=== PATIENT | female | born 1995 | race Caucasian/White ===

== ENCOUNTER 2017-04-13 00:17 | Emergency (ER) | payer MEDICAID ==
[~2017-04-13] VITALS: Ht 152.4 cm; Wt 74.1 kg
[~2017-04-13 00:17] MED LIST: MACROBID 100 M100 MG PO
[2017-04-13 01:22] LABS: EOS # 0.1 (0.04-0.40); EOS % 0.7 % (1.0-5.0); HEMATOCRIT 40.6 % (37.0-47.0); HEMOGLOBIN 13.9 g/dL (12.5-16.0); LYMPH# 2.4 (1.50-4.00); MEAN CELL VOLUME 84 fl (78-100); MEAN CORPUSCULAR HEMOGLOBIN 29 pg (27-31); MEAN CORPUSCULAR HGB CONC 34 g/dL (33-37); MEAN PLATELET VOLUME 9.2 fl (7.4-10.4); MONO # 0.7 (0.20-0.80); NEU # 7.2 (1.40-6.50); PLATELET COUNT 308 K/mm3 (130-400); RED BLOOD COUNT 4.81 M/mm3 (4.10-5.30); RED CELL DISTRIBUTION WIDTH 12.7 % (11.5-14.5); WHITE BLOOD COUNT 10.4 K/mm3 (4.8-10.8)
[2017-04-13 01:29] LABS: ALBUMIN 4.4 g/dL (3.5-5.0); BUN/CREATININE RATIO 22.2 (6.0-26.0); CALCIUM 9.3 mg/dL (8.4-10.2); TOTAL BILIRUBIN 0.5 mg/dL (0.2-1.3); TOTAL PROTEIN 8.3 g/dL (6.3-8.2)
[2017-04-13] MEDS ORDERED: PROPRANOLOL HCL20 M2 PO (01:52)
[2017-04-13 01:57] VITALS: BP 120/86
== END 2017-04-13 01:57 | disposition home or self-care (01) ==
LOC: ED 00:17
PROVIDERS: Nurse Practitioner Primary Care
DX: F41.1 Generalized anxiety disorder (principal); Z91.013 Allergy to seafood

== ENCOUNTER 2017-06-06 19:54 | Emergency (ER) | payer MEDICAID ==
[~2017-06-06] VITALS: Ht 152.4 cm; Wt 74.1 kg
[~2017-06-06 19:54] MED LIST changes: +PROPRANOLOL HCL20 M2 PO
[2017-06-06] MEDS ORDERED: FLONASE ALLERG9.9 ML NS (20:05)
[2017-06-06] MEDS ORDERED: AMOXICILLIN875 MG PO (20:37)
[2017-06-06 21:05] VITALS: BP 127/87
== END 2017-06-06 21:00 | disposition home or self-care (01) ==
LOC: ED 19:54
DX: J01.40 Acute pansinusitis, unspecified (principal); I10 Essential (primary) hypertension

== ENCOUNTER 2018-05-31 20:45 | Emergency (ER) | payer MEDICAID ==
[~2018-05-31] VITALS: Ht 152.4 cm; Wt 68.2 kg
[~2018-05-31 20:45] MED LIST changes: +AMOXICILLIN875 MG PO; +FLONASE ALLERG9.9 ML NS
[2018-05-31 22:30] VITALS: BP 131/91
[2018-05-31] MEDS ORDERED: PREDNISONE20 MG PO (22:35)
[2018-05-31] MEDS ORDERED: CIPRO500 M1 PO (22:35)
[2018-05-31] MEDS ORDERED: SYNTHROID0.05 MG PO (22:37)
[2018-06-01] MEDS ORDERED: BACTRIM DS TAB1 EACH PO (00:20)
== END 2018-06-01 00:26 | disposition home or self-care (01) ==
LOC: ED 20:45
DX: R20.0 Anesthesia of skin (principal); T36.8X5A Adverse effect of other systemic antibiotics, initial encounter; Z79.52 Long term (current) use of systemic steroids

== ENCOUNTER 2018-11-15 17:11 | Emergency (ER) | payer MEDICAID ==
[~2018-11-15] VITALS: Ht 160 cm; Wt 73.6 kg
[~2018-11-15 17:11] MED LIST changes: +BACTRIM DS TAB1 EACH PO; +CIPRO500 M1 PO; +PREDNISONE20 MG PO; +SYNTHROID0.05 MG PO
[2018-11-15] MEDS ORDERED: FLONASE ALLERG9.9 ML NS (17:30)
[2018-11-15] MEDS ORDERED: CLARITIN 1010 MG/TAB PO (18:04)
[2018-11-15] MEDS ORDERED: FLUTICASON0.05 MG/AC NS (18:04)
[2018-11-15 18:17] VITALS: BP 125/72
== END 2018-11-15 18:16 | disposition home or self-care (01) ==
LOC: ED 17:11
DX: J30.9 Allergic rhinitis, unspecified (principal); K21.9 Gastro-esophageal reflux disease without esophagitis; E03.9 Hypothyroidism, unspecified; Z88.1 Allergy status to other antibiotic agents; Z79.51 Long term (current) use of inhaled steroids

== ENCOUNTER 2018-11-24 22:18 | Emergency (ER) | payer SELFPAY ==
[~2018-11-24 22:18] MED LIST changes: +CLARITIN 1010 MG/TAB PO; +FLUTICASON0.05 MG/AC NS
[2018-11-25] MEDS ORDERED: CEFDINIR300 MG PO (01:28)
[2018-11-25 01:38] VITALS: BP 138/89
== END 2018-11-25 01:38 | disposition home or self-care (01) ==
LOC: ED 22:18
DX: J01.20 Acute ethmoidal sinusitis, unspecified (principal); E07.9 Disorder of thyroid, unspecified; Z98.890 Other specified postprocedural states

== ENCOUNTER → 2019-04-08 | Outpatient (CLI) | payer SELFPAY ==
[~2019-04-08] MED LIST changes: +CEFDINIR300 MG PO
== END ==
LOC: LAB 16:36
DX: M26.629 Arthralgia of temporomandibular joint, unspecified side (principal); N64.52 Nipple discharge

== ENCOUNTER 2019-05-14 13:46 | Emergency (ER) | payer SELFPAY ==
[~2019-05-14] VITALS: Ht 152.4 cm; Wt 68.2 kg
[2019-05-14] MEDS ORDERED: BACTRIM DS TAB1 EACH PO (14:10)
[2019-05-14 15:00] VITALS: BP 119/84
== END 2019-05-14 15:10 | disposition home or self-care (01) ==
LOC: ED 13:46
DX: L50.0 Allergic urticaria (principal); T36.8X5A Adverse effect of other systemic antibiotics, initial encounter

== ENCOUNTER 2019-05-18 05:05 | Emergency (ER) | payer SELFPAY ==
[2019-05-18] MEDS ORDERED: CEPHALEXIN500 M2 PO (06:01)
[2019-05-18] MEDS ORDERED: ATHLETE'S FOOT1% TP (06:01)
[2019-05-18 06:08] VITALS: BP 121/88
== END 2019-05-18 06:08 | disposition home or self-care (01) ==
LOC: ED 05:05
DX: R21 Rash and other nonspecific skin eruption (principal); T36.8X5A Adverse effect of other systemic antibiotics, initial encounter; B37.2 Candidiasis of skin and nail; N61.0 Mastitis without abscess; Z88.1 Allergy status to other antibiotic agents

== ENCOUNTER 2019-07-03 22:12 | Emergency (ER) | payer SELFPAY ==
[~2019-07-03] VITALS: Ht 167.6 cm; Wt 61.4 kg
[~2019-07-03 22:12] MED LIST changes: +ATHLETE'S FOOT1% TP; +CEPHALEXIN500 M2 PO
[2019-07-03] MEDS ORDERED: ZYRTEC10 M3 PO (22:22)
[2019-07-03 23:04] LABS: PH-URINE 5.5 (5.0 - 8.0); URINE APPEARANCE CLOUDY; URINE BILIRUBIN NEGATIVE (NEGATIVE); URINE BLOOD 50 ery/uL (NEGATIVE); URINE COLOR YELLOW; URINE GLUCOSE NEGATIVE (NEGATIVE); URINE KETONE NEGATIVE (NEGATIVE); URINE LEUKOCYTE ESTERASE 2+ (NEGATIVE); URINE NITRATE NEGATIVE (NEGATIVE); URINE PROTEIN(semi-quant) TRACE mg/dL (NEGATIVE); URINE UROBILINOGEN NORMAL (NORMAL)
[2019-07-03 23:05] LABS: URINE WBC >50 /hpf (0-3)
[2019-07-03] MEDS ORDERED: MACROBID 100 M100 MG PO (23:08)
[2019-07-03 23:14] VITALS: BP 135/88
== END 2019-07-03 23:15 | disposition home or self-care (01) ==
LOC: ED 22:12
PROVIDERS: Nurse Practitioner
DX: N39.0 Urinary tract infection, site not specified (principal)

== ENCOUNTER → 2020-02-14 | Outpatient (CLI) | payer MEDICAID ==
[~2020-02-14] MED LIST changes: +ZYRTEC10 M3 PO
== END ==
LOC: LAB 07:47
DX: R68.83 Chills (without fever) (principal); R06.02 Shortness of breath; R09.81 Nasal congestion; Z20.828 Contact with and (suspected) exposure to other viral communicable diseases

== ENCOUNTER 2021-01-06 02:18 | Emergency (ER) | payer MEDICAID ==
[~2021-01-06] VITALS: Ht 152.4 cm; Wt 66.0 kg
[2021-01-06] MEDS ORDERED: AMOXICILLIN AND1 TA2 PO (02:35)
[2021-01-06] MEDS ORDERED: VITAMIN D21250 MCG PO (02:36)
[2021-01-06] MEDS ORDERED: LEVOTHYROXIN0.075 MG PO (02:36)
[2021-01-06] MEDS ORDERED: PRILOSEC 20MG20 MG PO (02:37)
[2021-01-06 03:59] LABS: BASO # 0.01 (0.02-0.10); EOS # 0.03 (0.04-0.40); EOS % 0.5 % (1.0-5.0); HEMATOCRIT 40.7 % (37.0-47.0); HEMOGLOBIN 13.8 g/dL (12.5-16.0); LYMPH# 1.59 (1.50-4.00); MEAN CELL VOLUME 82 fl (78-100); MEAN CORPUSCULAR HEMOGLOBIN 28 pg (27-31); MEAN CORPUSCULAR HGB CONC 34 g/dL (33-37); MEAN PLATELET VOLUME 9.6 fl (7.4-10.4); MONO # 0.39 (0.20-0.80); NEU # 4.55 (1.40-6.50); PLATELET COUNT 242 K/mm3 (130-400); RED BLOOD COUNT 4.97 M/mm3 (4.10-5.30); RED CELL DISTRIBUTION WIDTH 13.6 % (11.5-14.5); WHITE BLOOD COUNT 6.6 K/mm3 (4.8-10.8)
[2021-01-06 04:03] LABS: ALBUMIN 4.3 g/dL (3.5-5.0); POTASSIUM 3.6 mmol/L (3.5-5.1)
[2021-01-06 04:04] LABS: CALCIUM 9.8 mg/dL (8.3-10.5)
[2021-01-06 04:06] LABS: TOTAL PROTEIN 7.9 g/dL (6.4-8.3)
[2021-01-06 04:07] LABS: TOTAL BILIRUBIN 0.5 mg/dL (0.2-1.2)
[2021-01-06 04:13] LABS: URINE APPEARANCE CLEAR; URINE COLOR YELLOW
[2021-01-06 04:14] LABS: URINE BILIRUBIN NEGATIVE (NEGATIVE); URINE BLOOD NEGATIVE (NEGATIVE); URINE GLUCOSE NEGATIVE (NEGATIVE); URINE KETONE 1+ (NEGATIVE); URINE LEUKOCYTE ESTERASE NEGATIVE (NEGATIVE); URINE NITRATE NEGATIVE (NEGATIVE); URINE PROTEIN(semi-quant) NEGATIVE (NEGATIVE); URINE UROBILINOGEN NORMAL (NORMAL); URINE WBC 0-1 /hpf (0-3)
[2021-01-06 04:46] VITALS: BP 130/75
== END 2021-01-06 04:46 | disposition home or self-care (01) ==
LOC: ED 02:18
PROVIDERS: Family Medicine
DX: R10.9 Unspecified abdominal pain (principal); K21.9 Gastro-esophageal reflux disease without esophagitis; E03.9 Hypothyroidism, unspecified; Z79.899 Other long term (current) drug therapy; Z79.890 Hormone replacement therapy

== ENCOUNTER 2021-01-15 21:11 | Emergency (ER) | payer MEDICAID ==
[~2021-01-15] VITALS: Ht 152.4 cm; Wt 66.7 kg
[~2021-01-15 21:11] MED LIST changes: +AMOXICILLIN AND1 TA2 PO; +LEVOTHYROXIN0.075 MG PO; +PRILOSEC 20MG20 MG PO; +VITAMIN D21250 MCG PO
[2021-01-15] MEDS ORDERED: MACROBID 100 M100 MG PO (21:30)
[2021-01-15] MEDS ORDERED: MORGIDOX 2X100100 MG PO (21:54)
[2021-01-15] MEDS ORDERED: PREDNISONE20 M1 PO (21:54)
[2021-01-15 22:30] VITALS: BP 123/81
== END 2021-01-15 22:31 | disposition home or self-care (01) ==
LOC: ED 21:11
DX: J32.9 Chronic sinusitis, unspecified (principal)

== ENCOUNTER 2021-01-21 19:49 | Emergency (ER) | payer MEDICAID ==
[~2021-01-21] VITALS: Ht 152.4 cm; Wt 66.7 kg
[~2021-01-21 19:49] MED LIST changes: +MORGIDOX 2X100100 MG PO; +PREDNISONE20 M1 PO
[2021-01-21 21:24] LABS: BASO # 0.01 K/mm3 (0.02-0.10); EOS # 0.04 K/mm3 (0.04-0.40); EOS % 0.7 % (1.0-5.0); HEMATOCRIT 39.4 % (37.0-47.0); HEMOGLOBIN 13.3 g/dL (12.5-16.0); LYMPH# 1.22 K/mm3 (1.50-4.00); MEAN CELL VOLUME 82 fl (78-100); MEAN CORPUSCULAR HEMOGLOBIN 28 pg (27-31); MEAN CORPUSCULAR HGB CONC 34 g/dL (33-37); MEAN PLATELET VOLUME 9.3 fl (7.4-10.4); MONO # 0.33 K/mm3 (0.20-0.80); NEU # 4.54 K/mm3 (1.40-6.50); PLATELET COUNT 252 K/mm3 (130-400); RED BLOOD COUNT 4.83 M/mm3 (4.10-5.30); RED CELL DISTRIBUTION WIDTH 13.7 % (11.5-14.5); WHITE BLOOD COUNT 6.1 K/mm3 (4.8-10.8)
[2021-01-21 21:35] LABS: POTASSIUM 3.3 mmol/L (3.5-5.1); SODIUM 142 mmol/L (136-145)
[2021-01-21 21:36] LABS: CALCIUM 9.5 mg/dL (8.3-10.5)
[2021-01-21 21:37] LABS: GLUCOSE 90 mg/dL (65-105)
[2021-01-21 21:39] LABS: CARBON DIOXIDE 21 mmol/L (22-29); TOTAL BILIRUBIN 0.6 mg/dL (0.2-1.2)
[2021-01-21 21:43] LABS: AST-SGOT 20 U/L (5-34)
[2021-01-21 21:44] LABS: ALT/SGPT 23 U/L (0-55)
[2021-01-21 21:51] LABS: TROPONIN-I < 0.03 ng/mL (<0.030)
[2021-01-21 22:02] LABS: PH-URINE 5.5 (5.0 - 8.0); URINE APPEARANCE HAZY; URINE COLOR YELLOW; URINE GLUCOSE NEGATIVE (NEGATIVE); URINE KETONE 2+ (NEGATIVE); URINE PROTEIN(semi-quant) TRACE mg/dL (NEGATIVE)
[2021-01-21 22:03] LABS: URINE BILIRUBIN NEGATIVE (NEGATIVE); URINE BLOOD 250 ery/uL (NEGATIVE); URINE LEUKOCYTE ESTERASE TRACE (NEGATIVE); URINE NITRATE NEGATIVE (NEGATIVE); URINE UROBILINOGEN NORMAL (NORMAL)
[2021-01-21 23:18] VITALS: BP 128/74
== END 2021-01-21 23:18 | disposition home or self-care (01) ==
LOC: ED 19:49
PROVIDERS: Nurse Practitioner Family
DX: F41.9 Anxiety disorder, unspecified (principal); E87.6 Hypokalemia; E03.9 Hypothyroidism, unspecified; Z79.890 Hormone replacement therapy

== ENCOUNTER 2021-02-10 16:48 | Emergency (ER) | payer MEDICAID ==
[2021-02-10] MEDS ORDERED: CYCLOBENZAPRINE10 M1 PO (17:28)
[2021-02-10] MEDS ORDERED: WELLBUTRIN XL150 M2 PO (17:29)
[2021-02-10 18:51] LABS: D-DIMER 0.49 mg/L FEU (0.15-0.50)
[2021-02-10 19:22] VITALS: BP 116/76
== END 2021-02-10 19:22 | disposition home or self-care (01) ==
LOC: ED 16:48
PROVIDERS: Nurse Practitioner
DX: M79.604 Pain in right leg (principal); F41.9 Anxiety disorder, unspecified; E03.9 Hypothyroidism, unspecified; Z79.890 Hormone replacement therapy; Z79.899 Other long term (current) drug therapy

== ENCOUNTER 2021-02-18 16:49 | Emergency (ER) | payer MEDICAID ==
[~2021-02-18] VITALS: Ht 152.4 cm; Wt 60.8 kg
[~2021-02-18 16:49] MED LIST changes: +CYCLOBENZAPRINE10 M1 PO; +WELLBUTRIN XL150 M2 PO
[2021-02-18 16:58] VITALS: BP 111/79
[2021-02-18] MEDS ORDERED: PANTOPRAZOLE SO40 MG PO (17:08)
[2021-02-18] MEDS ORDERED: PREDNISONE20 M1 PO (17:09)
== END 2021-02-18 19:25 | disposition left against medical advice (07) ==
LOC: ED 16:49
DX: R10.9 Unspecified abdominal pain (principal)

== ENCOUNTER 2021-02-23 02:49 | Emergency (ER) | payer MEDICAID ==
[~2021-02-23 02:49] MED LIST changes: +PANTOPRAZOLE SO40 MG PO
[2021-02-23 04:04] VITALS: BP 119/77
== END 2021-02-23 04:04 | disposition home or self-care (01) ==
LOC: ED 02:49
DX: F41.9 Anxiety disorder, unspecified (principal); R07.89 Other chest pain; E03.9 Hypothyroidism, unspecified; K21.9 Gastro-esophageal reflux disease without esophagitis; Z79.890 Hormone replacement therapy; Z79.899 Other long term (current) drug therapy